=== PATIENT | female | born 1980 | race Caucasian/White ===

== ENCOUNTER → 2017-05-06 | Outpatient (CLI) | payer BC | LOC: MRI 13:00 | DX: Z00.00 Encounter for general adult medical examination without abnormal findings (principal); G40.209 Localization-related (focal) (partial) symptomatic epilepsy and epileptic syndromes with complex partial seizures, not intractable, without status epilepticus; R94.02 Abnormal brain scan; F43.22 Adjustment disorder with anxiety; E03.9 Hypothyroidism, unspecified; G43.711 Chronic migraine without aura, intractable, with status migrainosus; G44.009 Cluster headache syndrome, unspecified, not intractable | CPT/HCPCS: 70543; 70553; A9577 ==

== ENCOUNTER 2022-04-16 15:58 | Emergency (ER) | payer BC ==
[2022-04-16 16:40] LABS: HEMOGLOBIN 14.5 gm/dl (12.3-15.3); RED BLOOD COUNT 4.76 M/UL (4.00-5.10); WHITE BLOOD COUNT 8.7 K/UL (4.5-11.0)
[2022-04-16 17:07] LABS: BUN/CREATININE RATIO 12 (0-10)
== END 2022-04-16 22:18 | disposition home or self-care (01) ==
LOC: ER1 15:58
PROVIDERS: Emergency Medicine
DX: R07.9 Chest pain, unspecified (principal); M79.661 Pain in right lower leg; M54.6 Pain in thoracic spine; G89.29 Other chronic pain; K59.00 Constipation, unspecified; I10 Essential (primary) hypertension; Z95.0 Presence of cardiac pacemaker; Z86.718 Personal history of other venous thrombosis and embolism
CPT/HCPCS: 80053; 81001; 82550; 82553; 83880; 84484; 85025; 93971; 96374; 96375; 99285; J1200; J2270; J2405; J2930; Q9967